=== PATIENT | female | born 1955 | race Caucasian/White ===

== ENCOUNTER 2023-11-12 11:19 | Emergency (ER) | payer MEDICARE, BC, SELFPAY ==
[2023-11-12 11:32] VITALS: BP 167/97; PULSE 61; RESP 18; TEMP 36.1; O2SAT 98; BMI 26.5
--- NOTE | 2023-11-12 11:35 | CRLHL7_ITS ---
For Patients: As a result of the Cures Act, medical imaging exams and procedure reports are released immediately into your electronic medical record. You may view this report before your referring provider. If you have questions, please contact your health care provider. Indication: injury, slipped on ice Technique: views Comparison: None Findings: Displaced and comminuted dorsally impacted fracture of the distal radial metaphysis. Dorsal angulation of the distal radial articular surface. Distal ulna appears intact. Degenerative changes at the triscaphe joint. Impression: Dorsally impacted, displaced and comminuted distal radial metaphyseal fracture. Dictated by Joshua Rubi MD @ 11/12/2023 12:02:34 PM (Electronically Signed)
--- NOTE | 2023-11-12 12:00 | PC.NURSE ---
Ice pack to right wrist, pt. declines pain medication at this time. at bedside.
--- NOTE | 2023-11-12 12:50 | ED_ITS ---
HPI - Extremity Injury (Upper) General Date Seen: 11/12/23 Chief Complaint: Extremity Pain/Injury, Upper Stated Complaint: wrist injury Time Seen by Provider: 11/12/23 11:36 Source: patient Mode of arrival: ambulatory Limitations: no limitations History of Present Illness HPI narrative: Patient is a 68-year-old female presenting right wrist pain. No concerning medical problems other than history of hypothyroidism. States she was walking when she slipped and fell on her right wrist. Denies hitting her head. Since then she is having right wrist pain. This happened shortly prior to arrival to emergency department. Denies numbness or weakness of her hand or fingers. No other injuries noted. Related Data Home Medications Medication Instructions Recorded Confirmed ibandronate 150 mg tablet 150 mg PO 11/12/23 levothyroxine 50 mcg tablet mcg PO 11/12/23 Previous Rx's Medication Instructions Recorded oxycodone 5 mg tablet 5 mg PO Q6H PRN pain #12 tabs 11/12/23 Allergies Allergy/AdvReac Type Severity Reaction Status Date / Time dye AdvReac Intermediate Uncoded 11/12/23 11:35 PFSH PFS Surgical History (Updated 11/12/23 @ 13:54 by Qing Smith ~ [facility], [facility]) History of hysterectomy (~1997) ?Z90.710 - Acquired absence of both cervix and uterus (ICD-10) Exam Narrative: Exam Narrative: Const: Well-nourished, Well-developed, in mild distress Eyes: PERRL, no conjunctival injection, and symmetrical lids HENT: Atraumatic external nose and ears. Moist mucous membranes. Neck: Symmetric, trachea midline, No thyromegaly. CVS: Peripheral pulses 2+ and equal in upper extremities MSK: Apparent deformity of right wrist that is tender to palpation, unable to move wrist secondary to pain. Full range of motion fingers. Skin: Warm, Dry. No rashes or lesions. Neuro: Normal Muscle tone, No focal neurological deficits. Psych: Awake, Alert, & Oriented x3. Appropriate mood and affect. Const: Vital Signs, click to edit/add: Vital Signs - 24 hr 11/12/23 11:32 Temperature 97.0 F L Pulse Rate [Right Pulse Oximeter] 61 Respiratory Rate 18 Blood Pressure [Le ft Forearm] 167/97 H Pulse Oximetry 98 Oxygen Delivery Me thod Room Air Course Vital Signs Vital signs: Initial Vital Signs Temperature 97.0 F L 11/12/23 11:32 Temperature Source Temporal Artery Scan 11/12/23 11:32 Pulse Rate 61 11/12/23 11:32 Respiratory Rate 18 11/12/23 11:32 Blood Pressure 167/97 H 11/12/23 11:32 Blood Pressure Mean 120 H 11/12/23 11:32 Blood Pressure Position Sitting 11/12/23 11:32 Pulse Oximetry 98 11/12/23 11:32 Oxygen Delivery Method Room Air 11/12/23 11:32 Vital Signs Temperature 97.0 F L 11/12/23 11:32 Pulse Rate 61 11/12/23 11:32 Respiratory Rate 18 11/12/23 11:32 Blood Pressure 167/97 H 11/12/23 11:32 Pulse Oximetry 98 11/12/23 11:32 Oxygen Delivery Method Room Air 11/12/23 11:32 Temperature 97.0 F L 11/12/23 11:32 Pulse Rate 61 11/12/23 11:32 Respiratory Rate 18 11/12/23 11:32 Blood Pressure 167/97 H 11/12/23 11:32 Pulse Oximetry 98 11/12/23 11:32 Oxygen Delivery Method Room Air 11/12/23 11:32 Medications Administered Medications: Discontinued Medications Generic Name Dose Route Start Last Admin Trade Name Deisi PRN Reason Stop Dose Admin Oxycodone HCl 5 mg 11/12/23 12:39 11/12/23 12:56 Oxycodone 5 Mg Tablet PO 11/12/23 12:40 5 mg ONCE ONE Administration MDM - Extremity Injury (Upper) MDM Narrative Medical decision making narrative: Patient is a 68-year-old female presenting for right wrist pain. X-rays of the wrist were ordered. There is no tenderness noted anywhere else. Says she is neurovascular intact. X-ray showed a impacted, dorsally displaced, comminuted distal radius fracture. Spoke to Orthopedics and recommended attempt to reduce and to have her follow up with them in office either way. Patient was not and a large amount pain but she was given oxycodone due to the reduction. Hematoma block was done. Marcella, The ortho PA, helped with the reduction. Post reduction x-rays were done showing good improvement in alignment. She has a follow-up appointment with Orthopedics scheduled for tomorrow. Will prescribe her oxycodone for pain. She is otherwise doing well and is still neurovascular intact. She will be discharged. Imaging Data Right wrist x-ray: Radiologist's impression: Dorsally impacted, displaced and comminuted distal radial metaphyseal fracture. Dictated by Joshua Rubi MD @ 11/12/2023 12:02:34 PM Post reduction x-ray: Radiologist's impression: Improved alignment of the acute comminuted displaced distal radial metaphyseal fracture status post reduction. No new fractures identified. Dictated by Fabian Reyna MD @ 11/12/2023 1:49:51 PM Discharge Plan Discharge Clinical Impression: Fracture of wrist Qualifiers: Encounter type: initial encounter Fracture type: closed Laterality: right Qualified Code(s): S62.101A - Fracture of unspecified carpal bone, right wrist, initial encounter for closed fracture Patient Disposition: Home, Self-Care Condition: Improved Instructions: Wrist Fracture in Adults (ED) Additional Instructions: Follow-up with orthopedics tomorrow morning. Also try to schedule an outpatient appointment with the primary care provider prior to your surgery. Take Tylenol and ibuprofen for pain. If that is not helping can use the oxycodone. Prescriptions: New oxycodone 5 mg tablet 5 mg PO Q6H PRN (Reason: pain) Qty: 12 0RF No Action levothyroxine 50 mcg tablet PO ibandronate 150 mg tablet 150 mg PO Follow Up/Referrals: Daija Chacon DO [Primary Care Provider] - Stand Alone Forms: [facility] Info Instructions Procedures Orthopedic Fracture Reduction Right wrist: Side: right Fracture location: radius Analgesia: hematoma block Technique: direct manipulation Post Reduction X-rays Demonstrate: acceptable reduction Post-reduction neuro exam: intact Post-reduction vascular exam: intact Splint Applied: Yes Patient Tolerated Procedure: well
--- OUTSIDE RECORDS SUMMARY | 2023-11-12 12:53 | XMS_ITS | Clinical Summary ---
Author Name Unknown Organization [facility] Address [place], [place] [address] Care Team Providers Care Staff Radiation Therapist Name Role Phone Daija Chacon DO Primary Care Provider Allergies Active Allergy Reactions Criticality Noted Date Comments D And C Blue No.2 Rash 05/31/2008 Any RX with colors (dye) cause a rash Levothyroxine Sodium Other - Describe In Comment Field 04/26/2021 painful throat sensation/difficulty swallowing. Azithromycin Other - Describe In Comment Field 03/24/2019 dizzy Medications Medication Sig Dispensed Refills Start Date End Date Status cholecalciferol (VITAMIN D-3) 2,000 unit capsule Take 1 capsule by mouth once daily. 0 02/21/2014 Active zinc 50 mg tablet Take 1 tablet by mouth once daily. Every other day 0 04/29/2017 Active fluorouracil 5% topical (EFUDEX) 5 % cream Apply topically to affected area(s) 2 times daily. 0 02/15/2021 Active ibandronate (BONIVA) 150 mg tabletIndications:Age -related osteoporosis without current pathological fracture Take 1 Tablet (150 mg) by mouth once a month. Take on empty stomach with full glass of water, do not lie down for 1 hr. 3 Tablet 4 06/10/2023 Active levothyroxine (SYNTHROID) 100 mcg tabletIndications:Hyp othyroidism (acquired) Take 1 Tablet (100 mcg) by mouth before breakfast. Take on even number days or M, W, F. Alternate daily with 50mcg dose. 45 Tablet 3 06/10/2023 Active levothyroxine (SYNTHROID) 50 mcg tabletIndications:Hyp othyroidism (acquired) Take 1 Tablet (50 mcg) by mouth before breakfast. Take on odd days of the month or S, , , S. Alternate with 100mcg dosing. 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 08/07/2007 Generalized anxiety disorder 06/26/2007 Dysthymic disorder 06/26/2007 Immunizations Name Administration Dates Next Due COVID-19 vaccine ([employer] NTAptible 30mcg/0.3mL) PF, MDV 02/07/2021,01/15/2021 Influenza, High-dose Quadriv alent Inactivated 08/17/2022 Influenza, IIV3 (Age >=3 years) 09/30/20 14,11/04/2013,08/01/2010,2006,10/17/2005 Influenza, IIV4 09/22/2020,07/02/2018 Influenza, Inactivated AIIV4 (Age 65+ Years) Preserv Free 08/22/2021 Pneumococcal Conj 20-valent (Prevnar 20) 06/10/2023 Pneumococcal Poly,23-Valent (Pneumovax) 03/28/2021 Td (Age >=7 Years) 05/04/1998 Tdap 08/01/2010 Family History Medical History Relation Name Comments Hypertension Father Other Father pernicious anem ia Psychiatric illness Father Heart Disease Mother Other Mother menieres/glauco ma Psychiatric illness Mother Cancer-breast Paternal Grandmother Other Sister glaucoma Cancer-ovarian No Family History Relation Name Status Comments Father Mother Paternal Grandmother Sister Social History Tobacco Use Types Packs/Day Years Used Date Smoking Tobacco: Never Smokeless Tobacco: Never Tobacco Cessation:Counseling Given: Yes Alcohol Use Standard Drinks/Week Comments No 0 (1 standard drink = 0.6 oz pur e alcohol) none PHQ-2 Answer Date Recorded PHQ-2 TOTAL SCORE 0 06/10/2023 Social Connections Answer Date Recorded Frequency of Communication with Friends and Fami ly 0 06/10/2023 Financial Resource Strain Answer Date R ecorded Difficulty of Paying Living Expenses 3 06/10/2023 Difficulty of Paying Living Expenses Not on file 06/10/2023 Food Insecurity Answer Date Recorded Worried About Running Out of Food in the Last Ye ar 1 06/10/2023 Transportation Needs Answer Date Record ed Lack of Transportation (Medical) 1 06/10/2023 Housing Stability Answer Date Recorded Unable to Pay for Housing in the Last Year 1 06/10/2023 Sex and Gender Information Value Date Recorded Sex Assigned at Not on file Gender Identity Not on file Sexual Orientation Not on file Obstetrics History Para Term AB IAB SAB Ectopic Multiple Livin g Live Births 4 1 1 3 Date Outcome GA Total Labor Labor/2nd/3rd Weight Sex Delivery Anes PTL Zeinab A1 A5 Name Cl in SAB Last Filed Vital Signs Vital Sign Reading Time Taken Comments Blood Pressure 149/98 06/10/2023 9:59 AM CDT Pulse 74 06/10/2023 9:59 AM CDT Temperature 37.3 ??C (99.2 ??F) 03/27/2022 7:34 AM CD T Respiratory Rate 12 03/10/2019 3:15 PM CDT Oxygen Saturation 99% 06/10/2023 9:59 AM CDT Inhaled Oxygen Concentration - - Weight 69.9 kg (154 lb) 06/10/2023 9:59 AM CDT Height 158.1 cm (5' 2.24) 06/10/2023 9:59 AM CD T Body Mass Index 27.95 06/10/2023 9:59 AM CDT Plan of Treatment Health Maintenance Due Date Last Done Comments Zoster (shingles) series for age 50+ (1 of 2) 02/11/2006 Tetanus booster 08/01/2020 08/01/2010, 05/04/1998 Influenza for age 65+ 06/21/2023 08/17/2022 , 08/22/2021, 09/22/2020, Additional history exists COVID-19 vaccine series ( season) 2023 05/21/2023, 07/26/2022, 01/21/2022, Additional history exists Fecal testing non-DNA (FIT,FOBT,iFOBT) for age 45-75 05/08/2024 05/08/2023, 04/03/2022, 12/15/2020 Medicare Wellness for age 65+ 06/09/2024, 03/07/2022, 02/15/2021 BMI (ht and wt on same day) for age 18+ 06/10/2024 06/10/2023, 03/07/2022, 04/26/2021, Additional history exists Depression screening for age 12+ 06/10/2024 06/10/2023, 03/09/2022, 03/09/2022, Additional history exists Mammogram for age 45-75 07/22/2024 07/22/20 23, 03/28/2021, 12/10/2019, Additional history exists Lipids for age 45-75 06/10/2028 06/10/2023, 03/08/2022, 02/16/2021, Additional history exists Tdap Completed 08/01/2010 Hepatitis C screening for ag e 18-79 Completed 03/08/2022 Pneumococcal series for age 65+ Completed , 03/28/2021 DEXA/DXA scan for age 65+ Completed 2022, 03/28/2021, 09/21/2011, Additional history exists Care Teams Staff Radiation Therapist Relationship Specialty Start Date End Date Daija Chacon DO [address] [place], [place] [id number] PCP - General Family Practice 11/17/13
[2023-11-12] MEDS: OXYCODONE 5 MG TABLET PO (12:56)
--- NOTE | 2023-11-12 13:24 | CRLHL7_ITS ---
For Patients: As a result of the Century Cures Act, medical imaging exams and procedure reports are released immediately into your electronic medical record. You may view this report before your referring provider. If you have questions, please contact your health care provider. INDICATION: Distal radial fracture status post reduction. TECHNIQUE: Right wrist radiographs, 3 views. COMPARISON: Right wrist radiographs 11/12/2023. FINDINGS: Interval placement of casting material limits evaluation of fine osseous and soft tissue detail. Once again seen is an acute comminuted displaced fracture of the distal radial metaphysis with improved alignment of the fracture fragments status post reduction. No new fractures identified. The joint spaces are preserved. . Mild soft tissue edema. No radiopaque foreign bodies. IMPRESSION: Improved alignment of the acute comminuted displaced distal radial metaphyseal fracture status post reduction. No new fractures identified. Dictated by Fabian Reyna MD @ 11/12/2023 1:49:51 PM (Electronically Signed)
== END 2023-11-12 14:35 | disposition home or self-care (01) ==
PROVIDERS: Emergency Provider Student in an Organized Health Care Education/Training Program; PCP Family Medicine
DX: S52.501A Unspecified fracture of the lower end of right radius, initial encounter for closed fracture (principal); W01.0XXA Fall on same level from slipping, tripping and stumbling without subsequent striking against object, initial encounter; Y93.01 Activity, walking, marching and hiking
CPT/HCPCS: 25605; 73110; 99283; 99284; A9270

== ENCOUNTER 2023-11-19 06:32 | Day surgery (SDC) | payer MEDICARE, BC, SELFPAY ==
[2023-11-19] VITALS (9 sets, daily range): BP systolic 121–178; BP diastolic 74–104; PULSE 72–84; RESP 16; TEMP 36.4–36.8; O2SAT 98; BMI 28.3
[2023-11-19] MEDS: LACTATED RINGERS 1000 ML 1,000 ML 100 ML IV ×2 (06:45→08:55)
[2023-11-19] MEDS: ACETAMINOPHEN 500 MG TABLET 1000 MG PO (07:15)
[2023-11-19] MEDS: OXYCODONE (CR) 10 MG TAB.ER.12H PO (07:15)
[2023-11-19] MEDS: CELECOXIB 200 MG CAPSULE PO (07:15)
[2023-11-19] MEDS: MIDAZOLAM HCL 1 MG/ML inj IVP (07:20)
[2023-11-19] MEDS: fentaNYL 100 MCG/2 ML inj IVP (07:20)
[2023-11-19] MEDS: SODIUM CHLORIDE 0.9 % (FLUSH) 10 ML SYRINGE IVF (07:28)
--- NOTE | 2023-11-19 07:30 | SUR.PREOP ---
TIME?OUT:?0715 PT/RN/MDA?VERIFICATION?OF?SURGICAL?SITE,?PROCEDURE,?AND?CONSENT OBTAINED?PRIOR?TO?INVASIVE?PROCEDURE.
--- NOTE | 2023-11-19 07:45 | CRLHL7_ITS ---
For Patients: As a result of the Cures Act, medical imaging exams and procedure reports are released immediately into your electronic medical record. You may view this report before your referring provider. If you have questions, please contact your health care provider. Indication: RIGHT WRIST FX ORIF Technique: 4 fluoroscopic images of the right wrist. Fluoroscopic time 44.5 seconds. IMPRESSION: Fluoroscopic guidance for open reduction internal fixation distal radial fracture. Dictated by Joshua Rubi MD @ 11/19/2023 9:12:22 AM (Electronically Signed)
[2023-11-19] MEDS: CEFAZOLIN 2 GM INJ IVP (08:05)
--- NOTE | 2023-11-19 08:49 | PM.ORPRC ---
Procedure Note Date of procedure: 11/19/23 Procedure: PREOPERATIVE DIAGNOSIS: Angulated 3+ part intra-articular right upper extremity distal radius fracture POSTOPERATIVE DIAGNOSIS: Angulated 3+ part intra-articular right upper extremity distal radius fracture NAME OF OPERATION: Open reduction internal fixation SURGEON: Иван Slater MD MANAGER OF MERCHANDISING: Haley Kennedy PA-C ANESTHESIA: Supraclavicular block plus monitored anesthesia care ESTIMATED BLOOD LOSS: 0 mL COMPLICATIONS: None SPECIMENS: None DRAINS: None PREOPERATIVE ANTIBIOTICS: Ancef 1 g INDICATIONS: The patient is a 68-year-old who fell landing on their upper extremity sustaining the above injury. Given the amount of angulation, reduction and plate fixation were recommended. The risks, benefits and expected outcomes were discussed in detail. These included but were not limited to: Infection, bleeding, injury to blood vessel or nerve, venous thromboembolism. All questions were answered to their satisfaction. Use of an pharmacy technician assistant was necessary throughout the case for patient positioning and safety, maintenance of the reduction, surgical site dressing and splint application. PROCEDURE: A supraclavicular block was placed by Anesthesia. The patient was placed supine on the operating room table. IV sedation was administered. The reduction was obtained with longitudinal traction and volar force on the distal fragment, held by the pharmacy technician assistant. The image intensifier was used to confirm an excellent reduction. The extremity was prepped and draped in the usual sterile fashion. The limb was exsanguinated with the Robby bandage. The pneumatic tourniquet was inflated to 250 mm of mercury. A longitudinal incision was made over the flexor carpi radialis. Subcutaneous dissection was taken sharply through the FCR sheath. The FCR was retracted radially. Sharp dissection was carried through the floor of the FCR sheath. The flexor pollicis longus was retracted ulnarly. Sharp dissection was carried through the radial border of the pronator quadratus which was elevated ulnarly, exposing the fracture site. The pharmacy technician assistant held retractors to expose the fracture. The volar cortex of the fracture is anatomically aligned. We placed a [employer] standard, 3 hole volar locking plate over the volar cortex. It was provisionally held with a K-wirex 2, while the pharmacy technician assistant held the reduction. Its placement was confirmed with the image intensifier. We placed a cortical screw in the slot. We placed a locking screw in the shaft. We then filled the distal screw holes with smooth locking pegs using the image intensifier to confirm their extra-articular placement. Finally, a 2nd locking screw was placed in the shaft fragment. This construct was imaged in multiple views and was felt to be well placed with an anatomic reduction and well placed implants. The wound was irrigated normal saline. Subcutaneous tissues were reapproximated with a 2-0 Vicryl, skin with a running 3-0 Monocryl in a subcuticular fashion. Glue was used to seal the skin. A dry dressing and short-arm dorsal volar splint was applied. These steps were all completed by the pharmacy technician assistant. The tourniquet was released, sponge and needle counts were correct x2. The patient tolerated the procedure well, there were no apparent complications. They were taken to the postanesthesia care unit in satisfactory condition. PLAN: The patient will be discharged home. They will work on elevation of the hand and active range of motion of the fingers. They will follow up next week in the office for a wound check with a PA, oblique, lateral and fossa lateral view of the wrist out of the splint prior to being seen in preparation for early active motion with a Velcro wrist brace.
--- NOTE | 2023-11-19 09:15 | W.PM.NB ---
Nerve Block Nerve Block Time Seen by Provider: 07:23 Date Seen: 11/19/23 Type of block requested by surgeon for post-operative analgesia: axillary Side: right Time out performed: Yes Verification of patient name: Yes Verification of date of : Yes Site marking: site marked Name of person performing procedure: Jermaine Continuous monitoring Was continuous monitoring of O2 sat, B/P, cardiac catheterization technologist, recorded every 15 minutes?: Yes Procedure Checklist: sterile prep, needles and gloves Ultrasound guided. Images saved: Yes Medications given in 5ml increments after negative aspiration: Ropivicaine %: 0.5 mL: 30 Needle gauge: 22 Patient tolerated procedure well: Yes Additional comments: Needle noted adjacent to nerve Block Charges Block Charge (with Pro Fee): Brachial Plexus Use of Ultrasound Machine for Block: Yes- US Guidance/pain block
--- NOTE | 2023-11-19 09:15 | W.ANESCHARGE ---
Anesthesia Charges Start Date/Time Anesthesia Start Date: 11/19/23 Anesthesia Start Time: 07:56 Stop Date/Time Anesthesia Stop Date: 11/19/23 Anesthesia Stop Time: 09:18
--- NOTE | 2023-11-19 09:22 | W.ANESCHARGE ---
Anesthesia Charges Start Date/Time Anesthesia Start Date: 11/19/23 Anesthesia Start Time: 07:56 Stop Date/Time Anesthesia Stop Date: 11/19/23 Anesthesia Stop Time: 09:18
== END 2023-11-19 10:20 | disposition home or self-care (01) ==
PROVIDERS: PCP Family Medicine; Visit Provider Orthopaedic Surgery
PROC: (CPT 25575; principal; 2023-11-19 07:45)
DX: S52.571A Other intraarticular fracture of lower end of right radius, initial encounter for closed fracture (principal); G89.18 Other acute postprocedural pain
CPT/HCPCS: 25609; 01830; 64415; 73110; 76000; 76942; A4580; A9270; C1713; J0690; J2250; J2405; J2704; J2795; J3010; J7120

== ENCOUNTER 2024-02-13 08:45 | Outpatient (RCR) | payer MEDICARE, BC, SELFPAY ==
--- NOTE | 2023-12-03 15:07 | OT.OPOE ---
OT Outpatient Ortho Eval OT Outpatient Ortho Eval* Start: 12/03/23 14:45 Freq: Status: Active Protocol: Document 12/03/23 14:45 AMB (Rec: 12/03/23 15:05 AMB [id number]) E-signed By Arti Cordova, OTR/L, CLT, BODYBUILDER OT OP Ortho Eval Details Complexity Complexity Low Insurance Information Insurance Information Medicare B Outpatient History/Precautions Current Condition/Medical Diagnosis Referring Provider NAHUM Garcia-1C Treatment Diagnosis Weakness, limited ROM, pain in RUE secondary to RUE DR nelson s/ p ORIF Date of Onset DOI: 11/12/23, DOS: 11/19/23 Medical Conditions Depression,Metal Implants, Osteoporosis Other Conditions Additional PMH from ortho chart: Allergies azithromycin [From Zithromax] Allergy (Verified 11/19/23 06: 38) Dizziness D and C blue no.2 Allergy ( Verified 11/19/23 06:38) Rash levothyroxine sodium [From Euthyrox] Allergy (Verified 06:38) Difficulty Swallowing Home Medications - Last Reconciled 11/27/23 by Agueda Faye ~ OPTOMECHANICAL ENGINEER, OPTOMECHANICAL ENGINEER cholecalciferol (vitamin D3) 2 ,000 units PO DAILY ibandronate 150 mg PO .q month levothyroxine 50 mcg PO Q OTHER DAY levothyroxine (Synthroid) 100 mcg PO Q OTHER DAY oxycodone 5 mg PO Q6H PRN oxycodone-acetaminophen 5-325 mg (Percocet) 1 - 2 tabs PO Q4 -6H PRN zinc 50 mg PO Q OTHER DAY Medical/Functional History Medical History Reviewed Yes Prior Level of Function/Mobility Full pain-free use of her RUE, RUE dominant Social History Employment Status Retired Hobbies Jewelry artist, sewing/ quilting Fitness Enjoys walking Ortho Subjective Subjective Subjective Pt states that on 11/12/23 she slipped on ice in her driveway and fell on her right hand. Pt was seen in ER and referred to ortho. She underwent ORIF of the DR nelson on 11/19/23. Pt was referred to OT for eval and treat, initiated ROM/ eventually strengthening. Pt feels she is doing ok, really wanting to get her function back so she can return to making jewelry and sewing. Pt states her pain is 2/10, described as aching. Goniometric Comments Goniometric Comments Goniometric Comments 12/03/23 AROM of BUE is WNL throughout with the exception of the RUE forearm, wrist and hand. AROM of the RUE wrist flexion is 30, ext is 35, UD is 20, RD is 15, pronation is 35, and supination is 65. Pt demonstrates full composite fist adn opposition to tip of 5th digit. Too early for strength testing. OT Objective Data Hand Hand Dominance Right Skin/Wounds/Edema Comments 12/03/23 Incisional area is covered with surgical adhesive , healing well, no s/s of infection. Swelling is appreciated throughout fingers , hand and wrist. Yellow bruising is also noted along ulnar wrist and forearm. OT Problems Problems Problems Decreased Strength,Decreased Range of Motion,Decreased Dexterity,Pain,Decreased Coordination,Lifting,Gripping, Pinching Other Problems Writing,Opening Containers, Dressing,Computer,Fasteners Patient Potential Good Assessment Assessment Assessment Pt is a very pleasant 68yo right hand dominant female referred to OT secondary to pain, swelling, limited ROM and weakness in RUE following DR nelson with ORIF. Prior to injury, pt was independent with all ADLs and IADLs including self cares and house work, pt also did a lot of sewing and making of jewelry. Currently, pt is having to rely on her to assist / complete house work as well as assist with some personal cares. Pt will benefit from skilled OT intervention to address impairments and restore full, pain-free use of RUE. Occupational Therapy Treatment Plan - OP Potential Rehabilitation Potential Good Set Goals Goals Set with Patient Yes Goals Goals 1. Pt will be independent and compliant with HEP in order to resume full, pain-free use of the involved UE. 3 weeks 2. Pt will demonstrate full, pain-free AROM of the involved UE in order to improve ability to grasp and hold. 6 weeks 3. Pt will demonstrate pain- free thermal molder and pinch strength comparable to the uninvolved side in order to improve functional grasp, hold, reach, and lifting ability needed to complete self-care, leisure tasks, and work activities. 8 weeks. Treatment Plan Treatment Plan Evaluation,Edema Control,Joint Mobilization,Manual Therapy, Splinting,Wound Care/Scar Management,Therapeutic Exercise,Therapeutic Activities,Self Care/Home Management,Education Expected Frequency 1-2x Week Expected Duration 8-10 Weeks Home Program Home Program Home Program Initiated Home Program Specifics 12/03/23 Provided training and practice in HEP for AROM and non-resisted mm pumps for edema reduction of the RUE hand, wrist and forearm. Following demo, pt is able to complete exs with minimal cues . Pt was provided with written instructions for use at home. Recertification Information Recertification Information Initial Certification Date 12/03/23 Recertification Due Date 03/02/24 Reasons to Continue Skilled Therapy Initiated OT today secondary to pain, weakness and limited AROM of the RUE forearm, wrist , and hand following DR nelson with ORIF. Rehabilitation Potential Good Click To Default 'Per treatment plan' Per treatment plan Continued Plan of Care and Interventions Per treatment plan Provider Signature Shows Agreement With POC & Medical Necessity Physician Comment/Change Comment or Changes Physician NPI Number #
== END 2024-02-14 07:08 | disposition home or self-care (01) ==
PROVIDERS: PCP Family Medicine; Visit Provider Physician Assistant
DX: R53.1 Weakness (principal); M79.621 Pain in right upper arm; Z98.890 Other specified postprocedural states; Z51.89 Encounter for other specified aftercare
CPT/HCPCS: 97110; 97140; 97165; X5282